=== PATIENT | male | born 1960 | race African-American/Black ===

== ENCOUNTER 2019-07-14 11:10 | Observation (INO) | payer OTHER ==
[2019-07-14] MEDS ORDERED: NA CHLORIDE 0.9% 1,000 ML ONE ×2 (11:33→14:45)
[2019-07-14] MEDS ORDERED: PANTOPRAZOLE 40 MG INJ ONE (11:33)
[2019-07-14] MEDS ORDERED: ONDANSETRON 4 MG/2 ML VIAL ONE (11:33)
[2019-07-14 11:59] LABS: Absolute Lymphocytes (CBC) 0.3 K/uL (0.7-4.9); Basophils % 0.2 % (0-1.3); Hematocrit 52.5 % (39.6-49.0); Lymphocytes % 2.7 % (15.3-44.8); MPV 8.8 fL (7.6-11.3); Protime INR 1.1
[2019-07-14 12:14] LABS: ALT/SGPT 45 U/L (12-78); AST/SGOT 23 U/L (15-37); Albumin 4.8 g/dL (3.4-5.0); Alkaline Phosphatase 129 U/L (45-117); BUN Blood Urea Nitrogen 17 mg/dL (7-18); Bicarbonate 24 mmol/L (21-32); Bilirubin Direct 0.2 mg/dL (0-0.2); Bilirubin Total 0.8 mg/dL (0.2-1.0); Glucose Level 97 mg/dL (74-106); Lipase 146 U/L (73-393); Magnesium 2.1 mg/dL (1.8-2.4); NT PRO-BNP 36 pg/mL (<125); Potassium 4.7 mmol/L (3.5-5.1); Protein, Total 9.8 g/dL (6.4-8.2); Sodium Level 138 mmol/L (136-145); Troponin (Emerg Dept Use Only) < 0.02 ng/mL (0.0-0.045)
--- NOTE | 2019-07-14 12:14 | RAD REPORT ---
EXAM DESCRIPTION: Juan R Single View07/14/2019 12:08 pm CLINICAL HISTORY: Abdominal pain COMPARISON: none FINDINGS: The lungs appear clear of acute infiltrate. The heart is normal size IMPRESSION: No acute abnormalities displayed
[2019-07-14 12:47] LABS: Blood Morphology Comment NOT SEEN (NOT SEEN); Platelet Estimate ADEQ
--- NOTE | 2019-07-14 13:21 | ER ---
Nurse's Notes [facility] Name: Lexx Moss Age: 59 yrs Sex: Male : 1960 Arrival Date: 07/14/2019 Time: 11:[address] Private MD: Diagnosis: Hematemesis;Vomiting;Tachycardia, unspecified Presentation: 07/14 11:19 Presenting complaint: Diarrhea x 2 days, blood in vomit and upper abdominal pain today. hb Not tolerating fluids. Transition of care: patient was not received from another setting of care. Onset of symptoms was July 13, 2019. Risk Assessment: Do you want to hurt yourself or someone else? Patient reports no desire to harm self or others. Care prior to arrival: None. 11:19 Method Of Arrival: Ambulatory hb 11:21 Acuity: MINI 2 hb 12:00 Initial Sepsis Screen: Does the patient meet any 2 criteria? RR > 20 per min. HR > 90 jl7 bpm. Does the patient have a suspected source of infection? No. Patient's initial sepsis screen is negative. Historical: - Allergies: 11:21 No Known Allergies; hb - Home Meds: 11:22 Lisinopril Oral [Active]; simvastatin 5 mg Oral tab [Active]; hb - PMHx: 11:22 Hypertension; High Cholesterol; hb - PSHx: 11:22 None; hb - Immunization history:: Adult Immunizations up to date. - Social history:: Smoking status: Patient uses tobacco products, smokes one-half pack cigarettes per day. - Ebola Screening: : No symptoms or risks identified at this time. - Family history:: not pertinent. Screenin:47 Abuse screen: Denies threats or abuse. Denies injuries from another. Nutritional jl7 screening: No deficits noted. Tuberculosis screening: No symptoms or risk factors identified. Fall Risk IV access (20 points). Total Jaquez Fall Scale indicates No Risk (0-24 pts). Assessment: 11:47 General: Appears in no apparent distress. uncomfortable, Behavior is calm, cooperative, jl7 appropriate for age. Pain: Denies pain. Neuro: Level of Consciousness is awake, alert, obeys commands, Oriented to person, place, time, situation. Cardiovascular: Heart tones present Patient's skin is warm and dry. Respiratory: Airway is patent Respiratory effort is even, unlabored, Respiratory pattern is regular, symmetrical. GI: Abdomen is flat, non-distended, Stools are reported to be diarrhea. Last BM at 10:20. Bowel sounds present X 4 quads. Abd is soft Abdomen is tender to palpation in epigastric area and right upper quadrant. : No signs and/or symptoms were reported regarding the genitourinary system. EENT: No signs and/or symptoms were reported regarding the EENT system. Derm: Skin is pink, warm \T\ dry. Musculoskeletal: No signs and/or symptoms reported regarding the musculoskeletal system. 13:00 Reassessment: Patient appears in no apparent distress at this time. Patient and/or jl7 family updated on plan of care and expected duration. Pain level reassessed. Patient is alert, oriented x 3, equal unlabored respirations, skin warm/dry/pink. Patient states feeling better. 13:59 Reassessment: ERD notified of HR, pt will not be discharged at this time. jl7 14:01 Reassessment: Dr. Hernandez at bedside. jl7 Vital Signs: 11:20 BP 111 / 98; Pulse 136; Resp 16; Temp 98.9; Pulse Ox 97% ; Weight 83.91 kg; Height 6 hb ft. 2 in. (187.96 cm); Pain 3/10; 11:33 BP 114 / 86; Pulse 129; Resp 14; Pulse Ox 99% ; sv 12:06 BP 129 / 90; Pulse 120; Resp 15; Pulse Ox 98% ; sv 13:09 BP 130 / 88; Pulse 110; Resp 23; Pulse Ox 97% ; sv 13:58 BP 127 / 88; Pulse 121; Resp 21; Temp 99.9; Pulse Ox 100% ; jl7 14:38 BP 128 / 92; Pulse 128; Resp 16; Pulse Ox 98% ; sv 15:05 BP 133 / 86; Pulse 121; Resp 24; Pulse Ox 99% ; sv 11:20 Body Mass Index 23.75 (83.91 kg, 187.96 cm) hb ED Course: 11:13 Patient arrived in ED. as 11:15 Artie Hernandez MD is Attending Physician. roselia 11:21 Triage completed. hb 11:22 Arm band placed on. hb 11:25 Rigoberto Og RN is Primary Nurse. jl7 11:30 Missed attempt(s): 22 gauge in right Bleeding controlled, band aid applied, catheter jl7 tip intact. 11:47 Patient has correct armband on for positive identification. Placed in gown. Bed in low jl7 position. Call light in reach. Side rails up X 1. monitor technician on. Pulse ox on. NIBP on. Warm blanket given. 11:47 Initial lab(s) drawn, by mo, sent to lab. Inserted saline lock: 22 gauge in right jl7 antecubital area, using aseptic technique. Blood collected. 12:04 EKG done, by counter intelligence technician. reviewed by Artie Hernandez MD. tc 12:06 Lipase Sent. sv 12:06 Basic Metabolic Panel Sent. sv 12:06 CBC with Diff Sent. sv 12:06 LFT's Sent. sv 12:06 Magnesium Sent. sv 12:06 NT PRO-BNP Sent. sv 12:06 PT-INR Sent. sv 12:06 Troponin (emerg Dept Use Only) Sent. sv 13:20 Thiago Chu MD is Referral Physician. roselia 13:22 Amol Alcantara MD is Referral Physician. roselia 14:06 Hyacinth Camacho MD is Hospitalizing Provider. roselia 15:06 Urine Dipstick--Ancillary (enter results) Sent. sv 15:06 CT Chest Abdomen Pelvis W/O Contrast Sent. sv 15:59 No provider procedures requiring assistance completed. Patient admitted, IV remains in sv place. intact. Administered Medications: 11:45 Drug: Zofran 4 mg Route: IVP; Site: right antecubital; jl7 12:00 Follow up: Response: No adverse reaction; Nausea is decreased jl7 11:47 Drug: ProTONIX 40 mg Route: IVP; Site: right antecubital; jl7 12:00 Follow up: Response: No adverse reaction jl7 11:47 Drug: NS 0.9% 1000 ml Route: IV; Rate: 1 bolus; Site: right antecubital; jl7 12:45 Follow up: Response: No adverse reaction; IV Status: Completed infusion; IV Intake: jl7 1000ml 14:05 Not Given (Duplicate Order): morphine 4 mg IVP once; RASS on ADMIN: Combtv4, Very roselia Agttd3, Agttd2, Rstlss1, AlertClm0, Drwsy-1, Lt Sdtn-2, Mod Sdtn-3, Dp Sdtn-4, UnArsble-5 14:05 Not Given (Duplicate Order): Zofran 4 mg IVP once; over 2 minutes [facility] 14:46 Drug: NS 0.9% 1000 ml Route: IV; Rate: 125 ml/hr; Site: right antecubital; jl7 16:00 Follow up: IV Status: Infusion continued upon admission jl7 Intake: 12:45 IV: 1000ml; Total: 1000ml. jl7 Outcome: 13:20 Discharge ordered by . [facility] 14:07 Decision to Hospitalize by Provider. [facility] 15:59 Admitted to Tele accompanied by tech, via wheelchair, room 409, with chart, Report sv called to Britney Galeano 15:59 Condition: stable 15:59 Instructed on the need for admit. 16:21 Patient left the ED. sv Signatures: Luna Asif, RN RN sv Artie Hernandez MD MD cha Martinez, Amelia as Kathi Baird, design technology teacher EKG Ttc Eloise Valera RN RN hb Leal, Jahala, RN RN jl7 Corrections: (The following items were deleted from the chart) 11:22 11:21 Social history: Smoking status: Patient/guardian denies using tobacco, hb hb
--- NOTE | 2019-07-14 13:22 | EDPHYS ---
Physician Documentation [facility] Name: Lexx Moss Age: 59 yrs Sex: Male : 1960 Arrival Date: 07/14/2019 Time: 11:[address] Private MD: ED Physician Artie Hernandez HPI: 07/14 11:29 This 59 yrs old Black Male presents to ER via Ambulatory with complaints of Vomiting. roselia 11:29 The patient presents to the emergency department with nausea, vomiting, diarrhea, roselia abdominal pain, of the epigastric area. Onset: The symptoms/episode began/occurred just prior to arrival, this morning. Possible causes: unknown. The symptoms are aggravated by. Associated signs and symptoms: The patient has no apparent associated signs or symptoms. Severity of symptoms: At their worst the symptoms were mild. The patient has not experienced similar symptoms in the past. Historical: - Allergies: 11:21 No Known Allergies; hb - Home Meds: 11:22 Lisinopril Oral [Active]; simvastatin 5 mg Oral tab [Active]; hb - PMHx: 11:22 Hypertension; High Cholesterol; hb - PSHx: 11:22 None; hb - Immunization history:: Adult Immunizations up to date. - Social history:: Smoking status: Patient uses tobacco products, smokes one-half pack cigarettes per day. - Ebola Screening: : No symptoms or risks identified at this time. - Family history:: not pertinent. ROS: 11:29 Constitutional: Negative for fever, chills, and weight loss, Eyes: Negative for injury, roselia pain, redness, and discharge, ENT: Negative for injury, pain, and discharge, Neck: Negative for injury, pain, and swelling, Cardiovascular: Negative for chest pain, palpitations, and edema, Respiratory: Negative for shortness of breath, cough, wheezing, and pleuritic chest pain, Back: Negative for injury and pain, : Negative for injury, bleeding, discharge, and swelling, MS/Extremity: Negative for injury and deformity, Skin: Negative for injury, rash, and discoloration, Neuro: Negative for headache, weakness, numbness, tingling, and seizure, Psych: Negative for depression, anxiety, suicide ideation, homicidal ideation, and hallucinations, Allergy/Immunology: Negative for hives, rash, and allergies, Endocrine: Negative for neck swelling, polydipsia, polyuria, polyphagia, and marked weight changes, Hematologic/Lymphatic: Negative for swollen nodes, abnormal bleeding, and unusual bruising. 11:29 Abdomen/GI: Positive for abdominal pain, nausea and vomiting, of the epigastric area. Exam: 11:29 Constitutional: This is a well developed, well nourished patient who is awake, alert, roselia and in no acute distress. Head/Face: Normocephalic, atraumatic. Eyes: Pupils equal round and reactive to light, extra-ocular motions intact. Lids and lashes normal. Conjunctiva and sclera are non-icteric and not injected. Cornea within normal limits. Periorbital areas with no swelling, redness, or edema. ENT: Nares patent. No nasal discharge, no septal abnormalities noted. Tympanic membranes are normal and external auditory canals are clear. Oropharynx with no redness, swelling, or masses, exudates, or evidence of obstruction, uvula midline. Mucous membranes moist. Neck: Trachea midline, no thyromegaly or masses palpated, and no cervical lymphadenopathy. Supple, full range of motion without nuchal rigidity, or vertebral point tenderness. No Meningismus. Chest/axilla: Normal chest wall appearance and motion. Nontender with no deformity. No lesions are appreciated. Cardiovascular: Regular rate and rhythm with a normal S1 and S2. No gallops, murmurs, or rubs. Normal PMI, no JVD. No pulse deficits. Respiratory: Lungs have equal breath sounds bilaterally, clear to auscultation and percussion. No rales, rhonchi or wheezes noted. No increased work of breathing, no retractions or nasal flaring. Back: No spinal tenderness. No costovertebral tenderness. Full range of motion. Male : Normal genitalia with no discharge or lesions. Skin: Warm, dry with normal turgor. Normal color with no rashes, no lesions, and no evidence of cellulitis. MS/ Extremity: Pulses equal, no cyanosis. Neurovascular intact. Full, normal range of motion. Neuro: Awake and alert, GCS 15, oriented to person, place, time, and situation. Cranial nerves II-XII grossly intact. Motor strength 5/5 in all extremities. Sensory grossly intact. Cerebellar exam normal. Normal gait. Psych: Awake, alert, with orientation to person, place and time. Behavior, mood, and affect are within normal limits. 11:29 Abdomen/GI: Inspection: abdomen appears normal, Bowel sounds: normal, Palpation: mild abdominal tenderness, in the epigastric area, Liver: no appreciated palpable abnormalities, Hernia: not appreciated. 13:18 Abdomen/GI: Inspection: [facility] Vital Signs: 11:20 BP 111 / 98; Pulse 136; Resp 16; Temp 98.9; Pulse Ox 97% ; Weight 83.91 kg; Height 6 hb ft. 2 in. (187.96 cm); Pain 3/10; 11:33 BP 114 / 86; Pulse 129; Resp 14; Pulse Ox 99% ; sv 12:06 BP 129 / 90; Pulse 120; Resp 15; Pulse Ox 98% ; sv 13:09 BP 130 / 88; Pulse 110; Resp 23; Pulse Ox 97% ; sv 13:58 BP 127 / 88; Pulse 121; Resp 21; Temp 99.9; Pulse Ox 100% ; jl7 14:38 BP 128 / 92; Pulse 128; Resp 16; Pulse Ox 98% ; sv 15:05 BP 133 / 86; Pulse 121; Resp 24; Pulse Ox 99% ; sv 11:20 Body Mass Index 23.75 (83.91 kg, 187.96 cm) hb MDM: 11:24 Patient medically screened. [facility] 11:32 Data reviewed: vital signs, nurses notes, lab test result(s), EKG, radiologic studies, [facility] CT scan, plain films. 07/14 11:29 Order name: Basic Metabolic Panel [facility] 07/14 11:29 Order name: CBC with Diff [facility] 07/14 11:29 Order name: LFT's [facility] 07/14 11:29 Order name: Magnesium [facility] 07/14 11:29 Order name: NT PRO-BNP [facility] 07/14 11:29 Order name: PT-INR [facility] 07/14 11:29 Order name: Troponin (emerg Dept Use Only) [facility] 07/14 11:29 Order name: Lipase [facility] 07/14 12:10 Order name: CBC with Automated Diff; Complete Time: 13:17 [facility] 07/14 12:11 Order name: Protime (+INR); Complete Time: 12:30 [facility] 07/14 12:17 Order name: Basic Metabolic Panel [facility] 07/14 12:18 Order name: Liver (Hepatic) Function [facility] 07/14 12:18 Order name: Troponin (Emerg Dept Use Only) [facility] 07/14 12:18 Order name: NT PRO-BNP [facility] 07/14 11:29 Order name: XRAY Chest (1 view) [facility] 07/14 12:18 Order name: Magnesium [facility] 07/14 12:18 Order name: Lipase [facility] 07/14 12:50 Order name: Manual Differential; Complete Time: 13:17 [facility] 07/14 14:01 Order name: CT Chest Abdomen Pelvis W/O Contrast [facility] 07/14 14:04 Order name: UDS [facility] 07/14 14:04 Order name: Blood Culture Adult (2) [facility] 07/14 14:42 Order name: RAD [facility] 07/14 14:43 Order name: Urine Dipstick--Ancillary (enter results) [facility] 07/14 14:55 Order name: Urine Drug Screen [facility] 07/14 15:00 Order name: Urine Dipstick-Ancillary [facility] 07/14 11:29 Order name: EKG; Complete Time: 11:38 [facility] 07/14 11:29 Order name: Cardiac monitoring; Complete Time: 11:32 [facility] 07/14 11:29 Order name: EKG - Nurse/Tech; Complete Time: 12:07 [facility] 07/14 11:29 Order name: IV Saline Lock; Complete Time: 11:47 [facility] 07/14 11:29 Order name: Labs collected and sent; Complete Time: 11:47 [facility] 07/14 11:29 Order name: O2 Per Protocol; Complete Time: 11:32 [facility] 07/14 11:29 Order name: O2 Sat Monitoring; Complete Time: 11:32 [facility] Administered Medications: 11:45 Drug: Zofran 4 mg Route: IVP; Site: right antecubital; jl7 12:00 Follow up: Response: No adverse reaction; Nausea is decreased jl7 11:47 Drug: ProTONIX 40 mg Route: IVP; Site: right antecubital; jl7 12:00 Follow up: Response: No adverse reaction jl7 11:47 Drug: NS 0.9% 1000 ml Route: IV; Rate: 1 bolus; Site: right antecubital; jl7 12:45 Follow up: Response: No adverse reaction; IV Status: Completed infusion; IV Intake: jl7 1000ml 14:05 Not Given (Duplicate Order): morphine 4 mg IVP once; RASS on ADMIN: Combtv4, Very roselia Agttd3, Agttd2, Rstlss1, AlertClm0, Drwsy-1, Lt Sdtn-2, Mod Sdtn-3, Dp Sdtn-4, UnArsble-5 14:05 Not Given (Duplicate Order): Zofran 4 mg IVP once; over 2 minutes roselia 14:46 Drug: NS 0.9% 1000 ml Route: IV; Rate: 125 ml/hr; Site: right antecubital; jl7 16:00 Follow up: IV Status: Infusion continued upon admission jl7 Disposition: 07/14/19 14:07 Hospitalization ordered by Hyacinth Camacho for Inpatient Admission. Preliminary diagnosis are Hematemesis, Vomiting, Tachycardia, unspecified. - Bed requested for Telemetry/MedSurg (Inpatient). - Status is Inpatient Admission. sv - Condition is Fair. - Problem is new. - Symptoms have improved. UTI on Admission? No Signatures: Dispatcher [employer] EDLuna Gonsalez RN Suzie Martin RN RN dw Anderson, Corey, MD MD cha Baxter, Heather, RN RN Rigoberto Og RN RN jl7 Corrections: (The following items were deleted from the chart) 11:22 11:21 Social history: Smoking status: Patient/guardian denies using tobacco, [facility] 13:20 13:20 07/14/2019 13:20 Discharged to Home. Impression: Vomiting; Gastritis, roselia unspecified; Hematemesis; Diarrhea, unspecified. Condition is Stable. Forms are Medication Reconciliation Form, Thank You Letter, Antibiotic Education, Prescription Opioid Use. Follow up: Private Physician; When: 2 - 3 days; Reason: Recheck today's complaints, Continuance of care, Re-evaluation by your physician. Problem is new. Symptoms have improved. [facility] 13:22 13:20 07/14/2019 13:20 Discharged to Home. Impression: Vomiting; Gastritis, roselia unspecified; Hematemesis; Diarrhea, unspecified. Condition is Stable. Forms are Medication Reconciliation Form, Thank You Letter, Antibiotic Education, Prescription Opioid Use. Follow up: Private Physician; When: 2 - 3 days; Reason: Recheck today's complaints, Continuance of care, Re-evaluation by your physician. Follow up: Thiago Chu; When: 2 - 3 days; Reason: Recheck today's complaints, Re-evaluation by your physician. Problem is new. Symptoms have improved. [facility] 13:22 13:22 07/14/2019 13:20 Discharged to Home. Impression: Vomiting; Gastritis, roselia unspecified; Hematemesis; Diarrhea, unspecified; Unspecified kidney failure. Condition is Stable. Discharge Instructions: Food Choices to Help Relieve Diarrhea, Adult, Diarrhea, Adult, Gastrointestinal Bleeding, Hematemesis, Nausea and Vomiting, Adult, Nausea and Vomiting, Adult, Eedz-cv-[id number], Diarrhea, Adult, Etpm-ob-Zavj, Chronic Kidney Disease, Adult, Lehi-lk-Sjfe, Chronic Kidney Disease, Adult. Prescriptions for Protonix 40 mg Oral Tablet - take 1 tablet by ORAL route once daily; 30 tablet, Zofran 4 mg Oral Tablet - take 1 tablet by ORAL route every 12 hours As needed; 20 tablet. and Forms are Medication Reconciliation Form, Thank You Letter, Antibiotic Education, Prescription Opioid Use. Follow up: Private Physician; When: 2 - 3 days; Reason: Recheck today's complaints, Continuance of care, Re-evaluation by your physician. Follow up: Thiago Chu; When: 2 - 3 days; Reason: Recheck today's complaints, Re-evaluation by your physician. Problem is new. Symptoms have improved. [facility] 14:05 13:22 07/14/2019 13:20 Discharged to Home. Impression: Vomiting; Gastritis, roselia unspecified; Hematemesis; Diarrhea, unspecified; Unspecified kidney failure. Condition is Stable. Discharge Instructions: Food Choices to Help Relieve Diarrhea, Adult, Diarrhea, Adult, Gastrointestinal Bleeding, Hematemesis, Nausea and Vomiting, Adult, Nausea and Vomiting, Adult, Ljzt-ii-Olqt, Diarrhea, Adult, Exek-fn-Jbji, Chronic Kidney Disease, Adult, Miwo-ff-Vavy, Chronic Kidney Disease, Adult. Prescriptions for Protonix 40 mg Oral Tablet - take 1 tablet by ORAL route once daily; 30 tablet, Zofran 4 mg Oral Tablet - take 1 tablet by ORAL route every 12 hours As needed; 20 tablet. and Forms are Medication Reconciliation Form, Thank You Letter, Antibiotic Education, Prescription Opioid Use. Follow up: Private Physician; When: 2 - 3 days; Reason: Recheck today's complaints, Continuance of care, Re-evaluation by your physician. Follow up: Thiago Chu; When: 2 - 3 days; Reason: Recheck today's complaints, Re-evaluation by your physician. Follow up: Amol Alcantara; When: 2 - 3 days; Reason: Recheck today's complaints, Re-evaluation by your physician. Problem is new. Symptoms have improved. roselia 15:44 14:07 Hospitalization Ordered by Hyacinth Camacho MD for Inpatient Admission. Preliminary dw diagnosis is Hematemesis; Vomiting; Tachycardia, unspecified. Bed requested for Telemetry/MedSurg (Inpatient). Status is Inpatient Admission. Condition is Fair. Problem is new. Symptoms have improved. UTI on Admission? No. roselia 16:21 15:44 07/14/2019 14:07 Hospitalization Ordered by Hyacinth Camacho MD for Inpatient sv Admission. Preliminary diagnosis is Hematemesis; Vomiting; Tachycardia, unspecified. Bed requested for Telemetry/MedSurg (Inpatient). Status is Inpatient Admission. Condition is Fair. Problem is new. Symptoms have improved. UTI on Admission? No. dw
--- NOTE | 2019-07-14 14:38 | RAD REPORT ---
EXAM DESCRIPTION: CT - Chest Abd Pelvis Wo Con - 07/14/2019 2:17 pm CLINICAL HISTORY: Chest and abdominal pain TECHNIQUE: Computed axial tomography of the chest, abdomen and pelvis was obtained. Oral contrast wa s given. IV contrast was not requested. All CT scans are performed using dose optimization technique as appropriate and may include automated exposure control or mA/KV adjustment according to patient size. FINDINGS: The evaluation of mediastinum, alcides, vessels and solid organs is limited secondary to the lack of IV contrast administration No mediastinal or hilar lymphadenopathy is seen. A pleural effusion is not present. A pericardial effusion is not seen. Lungs are clear. Small left posterior diaphragmatic hernia Fatty liver Spleen, pancreas, adrenals and right kidney appear grossly normal Multiple left renal cysts and nonobstructing renal calculi There is no evidence of diverticulitis. Normal appendix. Small left inguinal hernia contains Fluid throughout nondilated large and small bowel IMPRESSION: Fluid throughout nondilated large and small bowel may indicate an enteritis
[2019-07-14 14:54] LABS: Barbiturates NEGATIVE (NEGATIVE); Benzodiazepines NEGATIVE (NEGATIVE); Cocaine NEGATIVE (NEGATIVE); METHAMPHETAM NEGATIVE (NEGATIVE); Methadone NEGATIVE (NEGATIVE); Opiates NEGATIVE (NEGATIVE); Phencyclidine NEGATIVE (NEGATIVE); THC Cannibis NEGATIVE (NEGATIVE)
[2019-07-14 14:58] LABS: Urine Blood NEGATIVE (NEG); Urine Glucose NEGATIVE (NEG); Urine Protein TRACE (NEG)
--- NOTE | 2019-07-14 16:06 | P.HP ---
Certification for Inpatient Patient admitted to: Observation With expected LOS: <2 Midnights Practitioner: I am a practitioner with admitting privileges, knowledge of patient current condition, hospital course, and medical plan of care. Services: Services provided to patient in accordance with Admission requirements found in Title 42 Section 412.3 of the Code of Federal Regulations Patient History Date of Service: 07/14/19 Reason for admission: Intractable nausea/vomiting History of Present Illness: This is a E 59-year-old male with past medical history hypertension and hyperlipidemia who presented with nausea/vomiting along with diarrhea. 8:00 p.m. prior to the day of admission he started with watery, nonbloody diarrhea. He had 1 episode then went to sleep and then woke up 2:00 a.m. with progressively worsening episodes of watery nonbloody diarrhea. He was then unable to keep any food down due to the nausea. The vomiting started the morning of admission. He stated that he had multiple episodes of vomiting that were nonbloody and nonbilious. He went to work and was unable to eat anything due to the nausea/vomiting. He then again started having some episodes of vomiting and which he noted about 1 cupful of dark red blood. He denied any chest pain, shortness of breath, headache, dizziness, vision changes, speech changes, complaints. He also denied any fevers or chills that he knew of. He denied any ill contacts. States that he had sausages to eat yesterday, this was the only out of ordinary food that he may have had. He was also feeling nauseous and abdominal discomfort therefore he came to the ER. In the ER, blood pressure was 111/98, heart rate of 136, respirations of 16, afebrile at 98.9, 97% on room air and a BMI of 23.35. His labs were remarkable for a creatinine of 2.22 and an elevated alk-phos of 129. His chest x-ray was negative for any acute abnormalities. His CT of the abdomen showed evidence of enteritis. In the ER, he received Zofran, IV fluids and Protonix. At the time of my exam, in the ER, patient was alert oriented x3, ambulating without any concerns and hemodynamically stable though he continued to be tachycardic. He stated that his vomiting and diarrhea had resolved. Last episode of diarrhea was around 10:00 a.m. this morning and last episode of vomiting about 30 min after that. He continued to complain of nausea Home medications list reviewed: Yes - Past Medical/Surgical History Diabetic: No -: Hypertension -: Hyperlipidemia - Social History Smoking Status: Never smoker Alcohol use: Yes CD- Drugs: No Review of Systems 10-point ROS is otherwise unremarkable Physical Examination - Physical Exam General: Alert, In no apparent distress, Oriented x3 HEENT: Atraumatic, PERRLA, Mucous membr. moist/pink, EOMI, Sclerae nonicteric Neck: Supple, 2+ carotid pulse no bruit, No LAD, Without JVD or thyroid abnormality Respiratory: Clear to auscultation bilaterally, Normal air movement Cardiovascular: Normal S1 S2, Irregular heart rate/rhythm (Sinus tach) Gastrointestinal: Normal bowel sounds, Tenderness Musculoskeletal: No tenderness Integumentary: No rashes Neurological: Normal gait, Normal speech, Normal strength at 5/5 x4 extr, Normal tone, Normal affect Lymphatics: No axilla or inguinal lymphadenopathy - Studies Laboratory Data (last 24 hrs) 07/14/19 11:42: PT 12.9 H, INR 1.10 07/14/19 11:42: WBC 11.0 H, Hgb 17.3, Hct 52.5 H, Plt Count 217 07/14/19 11:42: Sodium 138, Potassium 4.7, BUN 17, Creatinine 2.22 H, Glucose 97 , Magnesium 2.1, Total Bilirubin 0.8, AST 23, ALT 45, Alkaline Phosphatase 129 H , Lipase 146 Assessment and Plan - Problems (Diagnosis) (1) Enteritis Current Visit: Yes Status: Acute Plan: Provide supportive care -continue IV fluid -symptom treatment (2) Acute kidney injury Current Visit: Yes Status: Acute Plan: Likely pre renal due to hypovolemia from vomiting and diarrhea. -will continue IV fluids -monitor kidney function via labs -if no improvement creatinine/kidney function, will go ahead and consult nephrology. -avoid nephrotoxic medications (3) Intractable nausea and vomiting Current Visit: Yes Status: Resolved (4) Diarrhea Current Visit: Yes Status: Resolved Qualifiers: Diarrhea type: unspecified type Qualified Code(s): R19.7 - Diarrhea, unspecified (5) Hypertension Current Visit: No Status: Chronic Qualifiers: Hypertension type: essential hypertension Qualified Code(s): I10 - Essential (primary) hypertension (6) Hyperlipidemia Current Visit: No Status: Chronic Qualifiers: Hyperlipidemia type: unspecified Qualified Code(s): E78.5 - Hyperlipidemia , unspecified - Plan DVT prophylaxis: Lovenox GI prophylaxis: Protonix Diet: Clear liquids Disposition: Admit to floor with tele, pending symptomatic improvement. Anticipate discharge home in the next 24-48 hr Discharge Plan: Home Plan to discharge in: 24 Hours - Advance Directives Does patient have a Living Will: No Does patient have a Durable POA for Healthcare: No Time Spent Managing Pts Care (In Minutes): 55
[2019-07-14] MEDS ORDERED: ONDANSETRON 4 MG/2 ML VIAL IV PRN (16:46)
[2019-07-14] MEDS ORDERED: SODIUM CHLORIDE 0.9% 10ML INJ IV PRN (16:46)
[2019-07-14] MEDS: ENOXAPARIN 40 MG/0.4 ML SQ SCH (17:08)
[2019-07-14] MEDS: METRONIDAZOLE 500mg IVPB 500 MG/100 ML BAG IV SCH (17:08)
[2019-07-14] MEDS: NA CHLORIDE 0.9% 1,000 ML IV SCH (17:08)
[2019-07-14 17:15] VITALS: BMI 21.9
--- NOTE | 2019-07-14 17:34 | EKG ---
Test Date: 2019-07-14 Test Time: 12:01:31 [employer] Operator: NISSA MEASUREMENT RESULTS: Intervals: Rate: 114 DE: 136 QRSD: 70 QT: 310 QTc: 427 [place]: P: 61 DE: 136 QRS: 66 T: 64 INTERPRETIVE STATEMENTS: Sinus tachycardia Otherwise normal ECG No previous ECG available for comparison Electronically Signed On 07-14-19 17:33:45 CDT by Min Rey
[2019-07-14] MEDS ORDERED: ATORVASTATIN 20 MG TAB PO SCH (21:00)
[2019-07-14] MEDS: CIPROFLOXACIN 400mg IV 400 MG/200 ML BAG IV SCH (21:34)
[2019-07-15] MEDS: METRONIDAZOLE 500mg IVPB 500 MG/100 ML BAG IV SCH ×2 (00:39→08:15)
[2019-07-15 04:52] LABS: Absolute Lymphocytes (CBC) 0.8 K/uL (0.7-4.9); Basophils % 0.5 % (0-1.3); Hematocrit 41.6 % (39.6-49.0); Lymphocytes % 19.2 % (15.3-44.8); MPV 9.2 fL (7.6-11.3); RBC Red Blood Cell Count 4.51 M/uL (4.33-5.43)
[2019-07-15 05:21] LABS: Albumin 3.4 g/dL (3.4-5.0); Bilirubin Total 0.6 mg/dL (0.2-1.0); Phosphorus 2.2 mg/dL (2.5-4.9)
[2019-07-15] MEDS: NA CHLORIDE 0.9% 1,000 ML IV SCH ×2 (06:16→11:19)
[2019-07-15] MEDS: ENOXAPARIN 40 MG/0.4 ML SQ SCH (08:15)
[2019-07-15] MEDS: CIPROFLOXACIN 400mg IV 400 MG/200 ML BAG IV SCH (08:15)
[2019-07-15] MEDS: POTASS/SODIUM PHOSPHATE 1 PKT POWD.PACK PO SCH ×3 (08:16→10:00)
[2019-07-15 08:57] VITALS: O2SAT 99
[2019-07-15] MEDS ORDERED: HOME MED 1 EA UNK (Simvastatin [Simvastatin] 1 TAB) PO SCH (09:00)
[2019-07-15] MEDS ORDERED: PANTOPRAZOLE 40 MG INJ IVP SCH (09:00)
[2019-07-15 12:53] VITALS: BP 110/72; TEMP 97.6
--- NOTE | 2019-07-15 15:16 | P.SSS ---
Patient History Date of Service: 07/15/19 Reason for admission: Intractable nausea/vomiting History of Present Illness: This is a E 59-year-old male with past medical history hypertension and hyperlipidemia who presented with nausea/vomiting along with diarrhea. 8:00 p.m. prior to the day of admission he started with watery, nonbloody diarrhea. He had 1 episode then went to sleep and then woke up 2:00 a.m. with progressively worsening episodes of watery nonbloody diarrhea. He was then unable to keep any food down due to the nausea. The vomiting started the morning of admission. He stated that he had multiple episodes of vomiting that were nonbloody and nonbilious. He went to work and was unable to eat anything due to the nausea/vomiting. He then again started having some episodes of vomiting and which he noted about 1 cupful of dark red blood. He denied any chest pain, shortness of breath, headache, dizziness, vision changes, speech changes, complaints. He also denied any fevers or chills that he knew of. He denied any ill contacts. States that he had sausages to eat yesterday, this was the only out of ordinary food that he may have had. He was also feeling nauseous and abdominal discomfort therefore he came to the ER. In the ER, blood pressure was 111/98, heart rate of 136, respirations of 16, afebrile at 98.9, 97% on room air and a BMI of 23.35. His labs were remarkable for a creatinine of 2.22 and an elevated alk-phos of 129. His chest x-ray was negative for any acute abnormalities. His CT of the abdomen showed evidence of enteritis. In the ER, he received Zofran, IV fluids and Protonix. At the time of my exam, in the ER, patient was alert oriented x3, ambulating without any concerns and hemodynamically stable though he continued to be tachycardic. He stated that his vomiting and diarrhea had resolved. Last episode of diarrhea was around 10:00 a.m. this morning and last episode of vomiting about 30 min after that. He continued to complain of nausea Allergies No Known Allergies Allergy (Verified 07/14/19 16:42) Home medications list reviewed: Yes Home Medications: Lisinopril/Hydrochlorothiazide [Lisinopril-Hctz 10-12.5 mg Tab] 1 each PO DAILY 07/14/19 Simvastatin 1 tab PO DAILY 07/14/19 - Past Medical/Surgical History Has patient received pneumonia vaccine in the past: No Diabetic: No -: Hypertension -: Hyperlipidemia - Family History Mother -: Hypertension Father -: Hypertension, Diabetes, Cancer Notes: colon cancer - Social History Smoking Status: Current every day smoker Alcohol use: Yes CD- Drugs: No Caffeine use: Yes Place of Residence: Home Review of Systems 10-point ROS is otherwise unremarkable Physical Examination - Vital Signs Temperature: 97.6 F Blood Pressure: 110/72 Pulse: 86 Respirations: 17 Pulse Ox (%): 97 - Physical Exam General: Alert, In no apparent distress, Oriented x3 HEENT: Atraumatic, PERRLA, Mucous membr. moist/pink, EOMI, Sclerae nonicteric Neck: Supple, 2+ carotid pulse no bruit, No LAD, Without JVD or thyroid abnormality Respiratory: Clear to auscultation bilaterally, Normal air movement Cardiovascular: Regular rate/rhythm, Normal S1 S2 Gastrointestinal: Normal bowel sounds, No tenderness Musculoskeletal: No tenderness Integumentary: No rashes Neurological: Normal gait, Normal speech, Normal strength at 5/5 x4 extr, Normal tone, Normal affect Lymphatics: No axilla or inguinal lymphadenopathy - Diagnosis (Problem(s)) (1) Enteritis Status: Acute Plan: Provided supportive care and IV fluids. No need for antibiotics on discharge. Symptoms improved prior to discharge (2) Acute kidney injury Status: Resolved Plan: Likely pre renal due to hypovolemia from vomiting and diarrhea. Resolved. (3) Intractable nausea and vomiting Status: Resolved Qualifiers: Vomiting type: unspecified Qualified Code(s): R11.2 - Nausea with vomiting , unspecified (4) Diarrhea Status: Resolved Qualifiers: Diarrhea type: unspecified type Qualified Code(s): R19.7 - Diarrhea, unspecified (5) Hypertension Status: Chronic Qualifiers: Hypertension type: essential hypertension Qualified Code(s): I10 - Essential (primary) hypertension (6) Hyperlipidemia Status: Chronic Qualifiers: Hyperlipidemia type: unspecified Qualified Code(s): E78.5 - Hyperlipidemia , unspecified - Disposition Discharge Date: 07/15/19 Disposition: ROUTINE DISCHARGE Condition: GOOD Patient Discharge Instructions: Please follow up with your Primary care doctor in 2-3 days. Return to the Emergency room for worsening symptoms. Diet: Regular Activity: Ad pee Time Spent Managing Pts Care (In Minutes): 45
== END 2019-07-15 13:25 | disposition home or self-care (01) ==
LOC: ER 11:10 → ERHOLD 15:10 → 4TH 15:58
PROVIDERS: ADMIT Family Medicine; ATTEND Family Medicine
DX: K52.9 Noninfective gastroenteritis and colitis, unspecified (principal); I10 Essential (primary) hypertension; E78.5 Hyperlipidemia, unspecified; N17.9 Acute kidney failure, unspecified; F17.210 Nicotine dependence, cigarettes, uncomplicated
CPT/HCPCS: 96361; 93005; 87040 ×2; 85025 ×2; 80048; 36415; 83735; 84100; 85610; 80076; 80307 ×8; 81003; 84484; 83690; 80053; 83880; 71250; 74176; 71045; 94760 ×2; 96375; 96374; 99285; C9113 ×2; J1650 ×2; J7030 ×4; J2405; J0744 ×2; G0378 ×2